=== PATIENT | male | born 1955 | race Hispanic/Latino ===

== ENCOUNTER → 2018-05-08 | Outpatient (CLI) | payer MEDICARE | END | disposition home or self-care (01) | LOC: SHCH 14:33 | PROVIDERS: ATTEND Internal Medicine Cardiovascular Disease | DX: R06.00 Dyspnea, unspecified (principal); G47.39 Other sleep apnea | CPT/HCPCS: 93306 ==

== ENCOUNTER → 2018-05-15 | Outpatient (CLI) | payer MEDICARE | END | disposition home or self-care (01) | LOC: SHCH 08:23 | PROVIDERS: ATTEND Internal Medicine Cardiovascular Disease | DX: I73.9 Peripheral vascular disease, unspecified (principal) | CPT/HCPCS: 93922 ==

== ENCOUNTER → 2018-06-10 | Outpatient (CLI) | payer MEDICARE ==
[~2018-06-10] MED LIST: IOHEXOL 350 MG/ML 100ML INFUS..BTL IV ONE; IOHEXOL-350 50ML VIAL IV ONE
== END | disposition home or self-care (01) ==
LOC: RAH 07:48
PROVIDERS: ATTEND Internal Medicine Cardiovascular Disease
DX: I70.213 Atherosclerosis of native arteries of extremities with intermittent claudication, bilateral legs (principal); I77.1 Stricture of artery
CPT/HCPCS: 73706 ×2; Q9967 ×2

== ENCOUNTER 2018-07-10 07:16 | Day surgery (SDC) | payer MEDICARE ==
[2018-07-08 09:18] VITALS: BP 170/78
[2018-07-08 09:23] LABS: EOSINOPHILS % (AUTO) 6.8 % (0.0-8.0); HEMATOCRIT 40.7 % (42-54); LYMPHOCYTES % (AUTO) 21.4 % (21.0-51.0); MEAN CORPUSCULAR HEMOGLOBIN 30.3 pg (27.0-33.0); MEAN CORPUSCULAR HGB CONC 33.7 g/dL (32.0-36.0); MEAN CORPUSCULAR VOLUME 89.8 fL (79-99); MONOCYTES % (AUTO) 7.8 % (3.0-13.0); PLATELET COUNT (AUTO) 167 K/uL (130-400); RED BLOOD CELL COUNT(AUTO) 4.53 MIL/uL (4.50-6.20); RED CELL DISTRIBUTION WIDTH 16.1 % (11.0-15.5); WHITE BLOOD COUNT (AUTO) 7.4 K/uL (4.8-10.8)
[2018-07-08 09:34] LABS: POTASSIUM 5.1 mmol/L (3.5-5.1)
[2018-07-08 09:37] LABS: CREATININE 9.8 mg/dL (0.5-1.5)
[2018-07-08 09:39] LABS: INR 1.15 (0.85-1.15); PARTIAL THROMBOPLASTIN TIME 29.5 SEC (26.3-35.5)
[2018-07-08 10:14] LABS: APPEARANCE,URINE Clear (CLEAR); BILIRUBIN,URINE Negative (NEGATIVE); COLOR,URINE Yellow (YELLOW); GLUCOSE, URINE (UA) 500 mg/dL (NEGATIVE); KETONES,URINE Negative (NEGATIVE); LEUKOCYTE ESTERASE ,URINE Small (NEGATIVE); NITRATE,URINE Negative (NEGATIVE); OCCULT BLOOD,URINE Negative (NEGATIVE); PH,URINE >=9.0 (5.0-8.0); PROTEIN,URINE 300 (NEGATIVE); UROBILINOGEN,URINE 0.2 mg/dL (0.2-1.0)
[2018-07-08 10:22] LABS: BACTERIA,URINE Rare /HPF (None Seen); RBC,URINE 0-1 /HPF (0-1); SQUAMOUS EPITHELIAL CELL,UR Rare /HPF (0-2)
--- NOTE | 2018-07-09 09:58 | NUR ---
ABNORMAL LABS REPORTED TO JOSE ROBERTO YUSUF OF PT'S BUN 42, CREAT 9.8, PT IS ON DIALYSIS, PT 12.0, UA- NITRATES NEGATIVE, ULEUKEST SMALL, UWBC 2-5. NO FURTHER ORDERS GIVEN.
[2018-07-10] VITALS (10 sets, daily range): BP systolic 137–168; BP diastolic 67–83
[~2018-07-10] VITALS: Ht 172.7 cm; Wt 97.1 kg
--- NOTE | 2018-07-10 04:15 | NUR ---
Pt called and notified of appointment with Dr. López for 07/17/18 at 12:50 PM. Pt verbalized understanding. Addendum: 07/10/18 at 1647 by JORGE MCNULTY RN RN Time should read 16:15.
[~2018-07-10 07:16] MED LIST changes: +AMLO10TA7 PO; +AURYXIA PO; +CARV12.511 PO; +FOLI0.8T22 PO; +GLIM4TAB3 PO; -IOHEXOL 350 MG/ML 100ML INFUS..BTL IV ONE; -IOHEXOL-350 50ML VIAL IV ONE
--- NOTE | 2018-07-10 08:30 | NUR ---
ASSESSMENT PT HERE FOR PROCEDURE. STATES HAS PAIN TO LOWER LEGS. NO FAMILY AT BEDSIDE BUT HAS FRIEND WHO WILL PICK HIM UP
[2018-07-10] MEDS ORDERED: NITROGLYCERIN 5 MG/ML 10 ML VIAL IV ONE (08:37)
[2018-07-10] MEDS ORDERED: HEPARIN SODIUM 1000UNIT/ML 10ML VIAL ONE (08:37)
[2018-07-10] MEDS ORDERED: LIDOCAINE HCL 2% 20ML ONE (08:37)
[2018-07-10] MEDS ORDERED: IODIXANOL 320 MG/ML 100 ML VIAL ONE (08:37)
--- NOTE | 2018-07-10 08:40 | NUR ---
PROCEDURE PT TAKEN TO PROCEDURE VIA BED BY WIRE BOUND BOX MACHINE HELPER STAFF Tracy RYAN RN
[2018-07-10] MEDS ORDERED: SODIUM CHLORIDE 0.9% 1000ML 1,000 ML IV ONE (09:00)
[2018-07-10] MEDS ORDERED: FAMOTIDINE/PF 20 MG/2 ML VIAL IV ONE (09:26)
[2018-07-10] MEDS ORDERED: MIDAZOLAM HCL 1 MG/ML 2ML VIAL ONE (09:31)
[2018-07-10] MEDS ORDERED: FENTANYL CITRATE PF 50 MCG/1 ML 2ML VIAL ONE (09:31)
[2018-07-10] MEDS ORDERED: LABETALOL HCL 5 MG/ML 20ML VIAL IV ONE (10:25)
[2018-07-10] MEDS ORDERED: TICAGRELOR 90 MG TABLET ONE (10:27)
[2018-07-10] MEDS ORDERED: ACETAMINOPHEN-CODEINE 300/30MG TAB PO PRN ×2 (10:45)
[2018-07-10] MEDS ORDERED: AURYXIA 210 MG PO SCH (14:00)
--- NOTE | 2018-07-10 15:10 | NUR ---
Pt discharged home, tolerating fluids, solid food well, ambulating well. Pt voided prior to going home. Denies any pain, nausea or dizziness. Site to right groin remains soft, non-tender. Pt instructed in routine and emergency care of groin site. Pt sent home with Brilinta 90 mg samples that were brought over by Nicole as well as prescription for Brilinta. No family available to be at bedside, however, pt reports understanding discharge instructions. Pt picked up at front entrance by family friend. Pt instructed to call day patient or Dr. Kelly with any further questions.
[2018-07-10] MEDS ORDERED: GLIMEPIRIDE 2 MG TABLET PO SCH (17:00)
[2018-07-10] MEDS ORDERED: TICAGRELOR 90 MG TABLET PO SCH (21:00)
[2018-07-10] MEDS ORDERED: CARVEDILOL 12.5 MG TABLET PO SCH (21:00)
[2018-07-11] MEDS ORDERED: AMLODIPINE BESYLATE 5 MG TAB PO SCH (09:00)
[2018-07-11] MEDS ORDERED: FOLIC ACID/VITAMIN B COMP W-C 1 MG CAPSULE PO SCH (09:00)
== END 2018-07-10 15:10 | disposition home or self-care (01) ==
LOC: DAH 07:16
PROVIDERS: ATTEND Internal Medicine Cardiovascular Disease
DX: I70.213 Atherosclerosis of native arteries of extremities with intermittent claudication, bilateral legs (principal); I70.0 Atherosclerosis of aorta; Z79.01 Long term (current) use of anticoagulants; E11.319 Type 2 diabetes mellitus with unspecified diabetic retinopathy without macular edema; E11.22 Type 2 diabetes mellitus with diabetic chronic kidney disease; E11.42 Type 2 diabetes mellitus with diabetic polyneuropathy; N18.5 Chronic kidney disease, stage 5; Z99.2 Dependence on renal dialysis; Z79.899 Other long term (current) drug therapy; Z98.890 Other specified postprocedural states; E78.5 Hyperlipidemia, unspecified; G89.29 Other chronic pain; M19.90 Unspecified osteoarthritis, unspecified site; Z68.33 Body mass index [BMI] 33.0-33.9, adult; Z82.49 Family history of ischemic heart disease and other diseases of the circulatory system
CPT/HCPCS: 36415; 37226; 71045; 75630; 80048; 81001; 82948 ×2; 85025; 85610; 85730; 93005; C1725; C1760; C1769; C1874; C1893; C1894; J1644 ×2; J2250; J3010; J3490 ×4; J7030; Q9967; 75716; 99156; 99157

== ENCOUNTER → 2020-01-12 | Outpatient (CLI) | payer MEDICARE ==
[~2020-01-12] MED LIST changes: +CINA30 PO; -GLIM4TAB3 PO; +GLIM4TAB36 PO; +TICA90TA PO
== END | disposition home or self-care (01) ==
LOC: SHCH 11:18
PROVIDERS: ATTEND Internal Medicine Cardiovascular Disease
DX: I70.25 Atherosclerosis of native arteries of other extremities with ulceration (principal)
CPT/HCPCS: 93925

== ENCOUNTER 2020-03-04 06:58 | Day surgery (SDC) | payer MEDICARE ==
[2020-03-02 09:46] VITALS: BP 173/74
[2020-03-02 11:15] LABS: APPEARANCE,URINE Clear (CLEAR); BILIRUBIN,URINE Negative (NEGATIVE); COLOR,URINE Yellow (YELLOW); GLUCOSE, URINE (UA) 500 mg/dL (NEGATIVE); KETONES,URINE Negative (NEGATIVE); LEUKOCYTE ESTERASE ,URINE Negative (NEGATIVE); NITRATE,URINE Negative (NEGATIVE); OCCULT BLOOD,URINE Trace (NEGATIVE); PROTEIN,URINE POS 2+ mg/dL (NEGATIVE); UROBILINOGEN,URINE 0.2 mg/dL (0.2-1.0)
[2020-03-02 11:18] LABS: EOSINOPHILS % (AUTO) 5.3 % (0.0-8.0); HEMATOCRIT 36.6 % (42-54); LYMPHOCYTES % (AUTO) 30.5 % (21.0-51.0); MEAN CORPUSCULAR HEMOGLOBIN 31.3 pg (27.0-33.0); MEAN CORPUSCULAR HGB CONC 33.9 g/dL (32.0-36.0); MEAN CORPUSCULAR VOLUME 92.4 fL (79-99); MONOCYTES % (AUTO) 8.8 % (3.0-13.0); NEUTROPHILS % (AUTO) 53.8 % (40.0-77.0); PLATELET COUNT (AUTO) 203 K/uL (130-400); RED BLOOD CELL COUNT(AUTO) 3.96 MIL/uL (4.50-6.20); RED CELL DISTRIBUTION WIDTH 14.3 % (11.0-15.5)
[2020-03-02 11:21] LABS: POTASSIUM 4.9 mmol/L (3.5-5.1)
[2020-03-02 11:25] LABS: CREATININE 12.3 mg/dL (0.5-1.5)
[2020-03-02 11:47] LABS: BACTERIA,URINE Rare /HPF (None Seen); RBC,URINE 0-1 /HPF (0-1); SQUAMOUS EPITHELIAL CELL,UR Few /HPF (0-2); WBC,URINE 0-1 /HPF (0-1)
[2020-03-02 12:47] LABS: INR 1.04 (0.85-1.15); PARTIAL THROMBOPLASTIN TIME 26.4 SEC (26.3-35.5); PROTHROMBIN TIME 11.2 SEC (9.6-11.6)
[~2020-03-04] VITALS: Ht 167.6 cm; Wt 92.5 kg
[~2020-03-04 06:58] MED LIST changes: +AMLO-258 PO; -AMLO10TA7 PO; -CINA30 PO; +CLOP75TA32 PO; +CYAN50008 PO; +FISH1CAP27 PO; -GLIM4TAB36 PO; +GLIP10TA9 PO; +ROPI0.5T7 PO; -TICA90TA PO; +VITA-164 PO
[2020-03-04] MEDS ORDERED: SODIUM CHLORIDE 0.9% 1000ML 1,000 ML IV SCH (08:00)
[2020-03-04 08:15] VITALS: BP 157/76
--- NOTE | 2020-03-04 08:15 | NUR ---
PRE-PROCEDURE RECEIVED TO DAY 16 FOR SCHEDULED BLE ANGIOGRAM WITH POSSIBLE SLIVER LAPPER/STENT. AWAKE IN NO ACUTE DISTRESS. DENIES PAIN AT PRESENT TIME. CONNECTED TO CONTINUOUS CARDIOPULMONARY MONITORING. SIDE RAILS UP X2, BED IN LOWEST POSITION, AND CALL LIGHT W/IN REACH.
[2020-03-04] MEDS ORDERED: MIDAZOLAM HCL 1 MG/ML 2ML VIAL ONE (11:45)
[2020-03-04] MEDS ORDERED: IODIXANOL 320 MG/ML 100 ML VIAL ONE (11:45)
[2020-03-04] MEDS ORDERED: SODIUM BICARB 50MEQ 50ML VIAL 0 ML ONE (11:45)
[2020-03-04] MEDS ORDERED: HEPARIN SODIUM 1000UNIT/ML 10ML VIAL ONE (11:46)
[2020-03-04] MEDS ORDERED: LIDOCAINE HCL 2% 20ML ONE (11:46)
[2020-03-04] MEDS ORDERED: NITROGLYCERIN 2 MG/VIAL VIAL IV ONE (11:46)
[2020-03-04] MEDS ORDERED: FENTANYL CITRATE PF 50 MCG/1 ML 2ML VIAL ONE (11:46)
--- NOTE | 2020-03-04 12:00 | NUR ---
PROCEDURE TRANSFERRED TO HEAD TRACK COACH BY VICK RYAN RN. AWAKE IN NO ACUTE DISTRESS.
--- NOTE | 2020-03-04 12:20 | NUR ---
PROCEDURE RECEIVED BACK TO ROOM 16, PROCEDURE CANCELLED D/T PT NOT BEING ABLE TO LAY FLAT. PROCEDURE WILL BE RESCHEDULED ON 03/16/20.
--- NOTE | 2020-03-04 12:25 | NUR ---
RESCHEDULE SPOKE WITH ALAYNA AT [facility]. NOTIFIED THAT PTS PROCEDURE IS TO BE RESCHEDULED ON 03/16/20.
--- NOTE | 2020-03-04 13:45 | NUR ---
DISCHARGE SPOKE WITH FRANKY AT DR. BRAY'S OFFICE. SHE WILL CALL PT ON SATURDAY IF HE NEEDS TO BE SEEN IN OFFICE PRIOR TO RESCHEDULE. ADMISSION ORDER FAXED TO [facility] [facility].
--- NOTE | 2020-03-04 13:49 | NUR ---
DISCHARGE DISCHARGE INSTRUCTIONS REVIEWED INCLUDING PLAN TO BE ADMITTED ON 03/16/20 FOR DIALYSIS AND BLE ANGIOGRAM. VERBALIZED UNDERSTANDING.
== END 2020-03-04 14:00 ==
LOC: DAH 06:58
PROVIDERS: ATTEND Internal Medicine Cardiovascular Disease
DX: I70.213 Atherosclerosis of native arteries of extremities with intermittent claudication, bilateral legs (principal); E11.22 Type 2 diabetes mellitus with diabetic chronic kidney disease; I13.2 Hypertensive heart and chronic kidney disease with heart failure and with stage 5 chronic kidney disease, or end stage renal disease; I50.33 Acute on chronic diastolic (congestive) heart failure; N18.6 End stage renal disease; E78.5 Hyperlipidemia, unspecified; E11.21 Type 2 diabetes mellitus with diabetic nephropathy; E11.319 Type 2 diabetes mellitus with unspecified diabetic retinopathy without macular edema; E11.40 Type 2 diabetes mellitus with diabetic neuropathy, unspecified; M19.90 Unspecified osteoarthritis, unspecified site; Z99.2 Dependence on renal dialysis; Z79.84 Long term (current) use of oral hypoglycemic drugs; Z79.01 Long term (current) use of anticoagulants; Z79.899 Other long term (current) drug therapy; Z98.890 Other specified postprocedural states; Z53.8 Procedure and treatment not carried out for other reasons
CPT/HCPCS: 36415; 71045; 80048; 81001; 82948; 85025; 85610; 85730; 93005; A4215; A4216; A4221; A4222; A4223 ×3; A4606; A4663; J7030; J1644; J2250; J3010; J3490; Q9967

== ENCOUNTER → 2020-06-28 | Outpatient (CLI) | payer MEDICARE ==
[~2020-06-28] VITALS: Ht 170.2 cm; Wt 91.6 kg
[~2020-06-28] MED LIST changes: +FOLI1TAB85 PO; +REGADENOSON 0.4 MG/5 ML PF SYG IVP SCH; +TICA90TA PO; +VITA100D6 PO
== END | disposition home or self-care (01) ==
LOC: SHCH 08:46
PROVIDERS: ATTEND Internal Medicine Cardiovascular Disease
DX: I50.32 Chronic diastolic (congestive) heart failure (principal)
CPT/HCPCS: 78452; 93017; 96374; A9500 ×2; J2785

== ENCOUNTER 2020-06-30 18:03 | Inpatient (IN) | payer MEDICARE ==
[~2020-06-30] VITALS: Ht 170.2 cm; Wt 88.1 kg
[~2020-06-30 18:03] MED LIST changes: -CYAN50008 PO; +CYAN50009 PO; -FOLI1TAB85 PO; -REGADENOSON 0.4 MG/5 ML PF SYG IVP SCH; -TICA90TA PO; -VITA100D6 PO
[2020-06-30 18:28] LABS: BASOPHILS % (AUTO) 0.8 % (0.0-5.0); EOSINOPHILS % (AUTO) 4.4 % (0.0-8.0); HEMATOCRIT 28.3 % (42-54); LYMPHOCYTES % (AUTO) 23.9 % (21.0-51.0); MEAN CORPUSCULAR HEMOGLOBIN 30.6 pg (27.0-33.0); MEAN CORPUSCULAR HGB CONC 34.3 g/dL (32.0-36.0); MEAN CORPUSCULAR VOLUME 89.3 fL (79-99); MONOCYTES % (AUTO) 8.1 % (3.0-13.0); NEUTROPHILS % (AUTO) 62.4 % (40.0-77.0); PLATELET COUNT (AUTO) 211 K/uL (130-400); RED BLOOD CELL COUNT(AUTO) 3.17 MIL/uL (4.50-6.20); RED CELL DISTRIBUTION WIDTH 14.3 % (11.0-15.5); WHITE BLOOD COUNT (AUTO) 8.4 K/uL (4.8-10.8)
[2020-06-30 18:41] LABS: INR 1.23 (0.85-1.15); PROTHROMBIN TIME 13.2 SEC (9.6-11.6)
[2020-06-30 18:43] LABS: PARTIAL THROMBOPLASTIN TIME 25.6 SEC (26.3-35.5)
[2020-06-30 18:46] LABS: ALBUMIN 3.4 g/dL (3.5-5.0); BILIRUBIN,TOTAL 0.7 mg/dL (0.2-1.0); POTASSIUM 4.1 mmol/L (3.5-5.1); TOTAL PROTEIN, SERUM 8.5 g/dL (6.0-8.3)
[2020-06-30 18:47] LABS: CREATININE 8.2 mg/dL (0.5-1.5)
[2020-06-30 18:57] LABS: CREATINE KINASE, TOTAL 41 U/L (21-232); MYOGLOBIN 301 ng/mL (10-92); TROPONIN I < 0.04 ng/mL (0.00-0.06)
[2020-07-01 04:30] VITALS: BP 176/62
[2020-07-01] MEDS ORDERED: AMLO-258 PO (06:23)
[2020-07-01] MEDS ORDERED: FOLI1TAB85 PO (06:23)
[2020-07-01] MEDS ORDERED: CARV12.511 PO (06:23)
[2020-07-01] MEDS ORDERED: ROPI0.5T7 PO (06:23)
[2020-07-01] MEDS ORDERED: VITA100D6 PO (06:23)
[2020-07-01] MEDS ORDERED: TICA90TA PO (06:23)
[2020-07-01] MEDS ORDERED: GLIP10TA9 PO (06:23)
[2020-07-01 07:14] VITALS: BP 174/74
[2020-07-01 11:18] VITALS: BP 175/81
[2020-07-01 15:55] VITALS: BP 167/72
[2020-07-01] MEDS: GLIPIZIDE 5 MG TABLET PO SCH (16:14)
[2020-07-01] MEDS ORDERED: BIVALIRUDIN 250 MG/VIAL IV ONE (17:13)
[2020-07-01] MEDS ORDERED: NITROGLYCERIN 2 MG VIAL IV ONE (17:13)
[2020-07-01] MEDS ORDERED: IOHEXOL 350 MG/ML 100ML INFUS..BTL IV ONE (17:13)
[2020-07-01] MEDS ORDERED: SODIUM BICARB 50MEQ 50ML VIAL 50 ML ONE (17:13)
[2020-07-01] MEDS ORDERED: LIDOCAINE HCL 400MG/20ML VIAL ONE ×2 (17:14→18:07)
[2020-07-01] MEDS ORDERED: FENTANYL CITRATE PF 50 MCG/1 ML 2ML VIAL ONE ×2 (17:14→19:03)
[2020-07-01] MEDS ORDERED: MIDAZOLAM HCL 1 MG/ML 2ML VIAL ONE (17:14)
[2020-07-01] MEDS ORDERED: ENALAPRILAT DIHYDRATE 1.25 MG/ML 2ML VIAL IVP ONE ×3 (18:28→18:42)
[2020-07-01] MEDS ORDERED: LABETALOL 20MG VIAL IV ONE (18:42)
[2020-07-01] MEDS ORDERED: NICARDIPINE 25MG INJ IV ONE (19:01)
[2020-07-01] MEDS ORDERED: PRASUGREL HCL 10 MG TABLET ONE (19:28)
[2020-07-01] MEDS ORDERED: HYDRALAZINE 20MG/ML VIAL ONE (19:31)
[2020-07-01] MEDS ORDERED: HYDRALAZINE 20MG/ML VIAL IV PRN (20:30)
[2020-07-01 20:45] VITALS: BP 166/74
[2020-07-01] MEDS ORDERED: TICAGRELOR 90 MG TABLET PO SCH (21:00)
[2020-07-01] MEDS: FISH OIL 1000 MG/CAP PO SCH (21:05)
[2020-07-01] MEDS: CARVEDILOL 12.5 MG TABLET PO SCH (21:07)
[2020-07-01 23:30] VITALS: BP 169/78
[2020-07-02] VITALS (10 sets, daily range): BP systolic 146–181; BP diastolic 74–86
[2020-07-02] MEDS: GLIPIZIDE 5 MG TABLET PO SCH ×2 (05:37→08:30)
[2020-07-02 07:41] LABS: HEMATOCRIT 27.5 % (42-54); MEAN CORPUSCULAR HGB CONC 33.1 g/dL (32.0-36.0); MEAN CORPUSCULAR VOLUME 90.8 fL (79-99); PLATELET COUNT (AUTO) 206 K/uL (130-400); RED BLOOD CELL COUNT(AUTO) 3.03 MIL/uL (4.50-6.20); RED CELL DISTRIBUTION WIDTH 14.5 % (11.0-15.5); WHITE BLOOD COUNT (AUTO) 8.8 K/uL (4.8-10.8)
[2020-07-02 08:00] LABS: CREATININE 7.8 mg/dL (0.5-1.5); PHOSPHORUS 4.3 mg/dL (2.5-4.9); POTASSIUM 4.3 mmol/L (3.5-5.1)
[2020-07-02] MEDS ORDERED: ROPINIROLE HCL 0.25 MG TABLET PO SCH (08:00)
[2020-07-02] MEDS: CARVEDILOL 12.5 MG TABLET PO SCH (08:30)
[2020-07-02] MEDS: FISH OIL 1000 MG/CAP PO SCH (08:31)
[2020-07-02] MEDS ORDERED: VITAMIN E 400 UNIT CAPSULE PO SCH (09:00)
[2020-07-02] MEDS ORDERED: AMLODIPINE 5 MG TAB PO SCH (09:00)
[2020-07-02] MEDS ORDERED: PRASUGREL HCL 10 MG TABLET PO SCH (09:00)
[2020-07-02] MEDS ORDERED: Vitamin B Complex/Vit C/Folic Acid PO SCH (09:00)
[2020-07-02 09:41] LABS: BASOPHILS % (MANUAL) 1 % (0-2); EOSINOPHILS % (MANUAL) 2 % (1-6); LYMPHOCYTES % (MANUAL) 10 % (22-44); MONOCYTES % (MANUAL) 8 % (2-9); SEGMENTED NEUTROPHILS % 79 % (40-70)
[2020-07-02 09:43] LABS: PLATELET MORPHOLOGY COMMENT ADEQUATE
[2020-07-02 09:45] LABS: MAN.DIFF COMMENT-IMPRESSION MANUAL DIFFERENTIAL
[2020-07-02 10:12] LABS: HEPATITIS A ANTIBODY IGM Negative (Negative); HEPATITIS B CORE IGM Negative (Negative); HEPATITIS Bs ANTIGEN SCREEN P Negative (Negative)
== END 2020-07-02 13:10 | disposition left against medical advice (07) | DRG 246 ==
LOC: EDH 18:03 → EDHIP 18:04 → 4CH 07-01 04:13
PROVIDERS: ADMIT Internal Medicine Nephrology; ATTEND Internal Medicine Nephrology
PROC: 5A1D70Z Performance of Urinary Filtration, Intermittent, Less than 6 Hours Per Day (ICD-10-PCS; 2020-06-30)
PROC: 027034Z Dilation of Coronary Artery, One Artery with Drug-eluting Intraluminal Device, Percutaneous Approach (ICD-10-PCS; principal; 2020-07-01)
PROC: 5A1D70Z Performance of Urinary Filtration, Intermittent, Less than 6 Hours Per Day (ICD-10-PCS; 2020-07-01)
PROC: 4A023N8 Measurement of Cardiac Sampling and Pressure, Bilateral, Percutaneous Approach (ICD-10-PCS; 2020-07-01)
PROC: B211YZZ Fluoroscopy of Multiple Coronary Arteries using Other Contrast (ICD-10-PCS; 2020-07-01)
PROC: B215YZZ Fluoroscopy of Left Heart using Other Contrast (ICD-10-PCS; 2020-07-01)
DX: I25.10 Atherosclerotic heart disease of native coronary artery without angina pectoris (principal); N18.6 End stage renal disease; I13.2 Hypertensive heart and chronic kidney disease with heart failure and with stage 5 chronic kidney disease, or end stage renal disease; I16.9 Hypertensive crisis, unspecified; I50.42 Chronic combined systolic (congestive) and diastolic (congestive) heart failure; E78.5 Hyperlipidemia, unspecified; E11.22 Type 2 diabetes mellitus with diabetic chronic kidney disease; Z99.2 Dependence on renal dialysis; E83.39 Other disorders of phosphorus metabolism; E11.51 Type 2 diabetes mellitus with diabetic peripheral angiopathy without gangrene; D64.9 Anemia, unspecified; I34.0 Nonrheumatic mitral (valve) insufficiency; Z20.822 Contact with and (suspected) exposure to COVID-19; Z88.5 Allergy status to narcotic agent
CPT/HCPCS: 36415; 71045; 78452; 80048; 80053; 80061; 80074; 82550; 82948; 83874; 84100; 84484; 85025; 85610; 85730; 87426; 90935; 93005; 93017; 93460; 96374; 99156; 99157; A9500; C1769; C1887; C1894; C9600; G0378; J0360; J0583; J1644; J2250; J2785; J3010; J3490; Q9967; U0003

== ENCOUNTER 2021-02-07 05:56 | Inpatient (IN) | payer MEDICARE ==
[2021-02-02 16:09] LABS: BASOPHILS % (AUTO) 0.8 % (0.0-5.0); EOSINOPHILS % (AUTO) 4.4 % (0.0-8.0); HEMATOCRIT 36.3 % (42-54); LYMPHOCYTES % (AUTO) 20.5 % (21.0-51.0); MEAN CORPUSCULAR HEMOGLOBIN 31.7 pg (27.0-33.0); MEAN CORPUSCULAR HGB CONC 34.7 g/dL (32.0-36.0); MEAN CORPUSCULAR VOLUME 91.4 fL (79-99); MONOCYTES % (AUTO) 7.8 % (3.0-13.0); NEUTROPHILS % (AUTO) 65.9 % (40.0-77.0); PLATELET COUNT (AUTO) 191 K/uL (130-400); RED BLOOD CELL COUNT(AUTO) 3.97 MIL/uL (4.50-6.20); RED CELL DISTRIBUTION WIDTH 13.5 % (11.0-15.5); WHITE BLOOD COUNT (AUTO) 10.5 K/uL (4.8-10.8)
[2021-02-02 16:20] LABS: POTASSIUM 5.3 mmol/L (3.5-5.1)
[2021-02-02 16:21] LABS: INR 1.19 (0.85-1.15); PROTHROMBIN TIME 12.8 SEC (9.6-11.6)
[2021-02-02 16:22] LABS: PARTIAL THROMBOPLASTIN TIME 28.2 SEC (26.3-35.5)
[2021-02-02 16:24] LABS: CREATININE 9.4 mg/dL (0.5-1.5)
[~2021-02-07] VITALS: Ht 170.2 cm; Wt 90.4 kg
[2021-02-07] VITALS (18 sets, daily range): BP systolic 107–177; BP diastolic 51–85
[~2021-02-07 05:56] MED LIST changes: -FOLI0.8T22 PO; +FOLI1TAB85 PO; +TICA90TA PO; +VITA100D6 PO
[2021-02-07] MEDS ORDERED: NITROGLYCERIN 2 MG VIAL IV ONE (08:22)
[2021-02-07] MEDS ORDERED: HEPARIN 10,000 UNIT/10ML (1,000 UNIT/ML) VIAL ONE (08:22)
[2021-02-07] MEDS ORDERED: LIDOCAINE HCL 400MG/20ML VIAL ONE (08:23)
[2021-02-07] MEDS ORDERED: IODIXANOL 320 MG/ML 100 ML VIAL ONE (08:23)
[2021-02-07] MEDS ORDERED: FENTANYL CITRATE PF 50 MCG/1 ML 2ML VIAL ONE ×2 (08:23→10:18)
[2021-02-07] MEDS ORDERED: MIDAZOLAM HCL 1 MG/ML 2ML VIAL ONE (08:23)
[2021-02-07] MEDS ORDERED: DEXTROSE 50%-WATER 50 ML DISP.SYRIN IV ONE (08:51)
[2021-02-07] MEDS ORDERED: 0.9%NACL 1000ML 1,000 ML IV ONE (09:06)
[2021-02-07] MEDS ORDERED: ACETAMINOPHEN 325 MG TAB PO PRN (13:00)
[2021-02-07] MEDS: 0.9%NACL 50ML 50 ML IV SCH (13:00)
[2021-02-07] MEDS ORDERED: ZOSYN 3.375GM+NS 50ML 3.38 GM in 0.9%NACL 50ML 50 ML IV SCH (13:00)
[2021-02-07] MEDS ORDERED: VANCOMYCIN PROTOCOL PER PHARMACY IV SCH (13:00)
[2021-02-07] MEDS ORDERED: ONDANSETRON 4MG INJ IVP PRN (13:00)
[2021-02-07] MEDS: PHARMACY COMMUNICATION MISC SCH ×2 (14:00→22:00)
[2021-02-07] MEDS ORDERED: VANCOMYCIN 1G 1.5 GM in 0.9% NACL 250ML 250 ML IV ONE ×2 (14:00→17:00)
[2021-02-07] MEDS ORDERED: CHOL100046 PO (14:48)
[2021-02-07] MEDS: ZOSYN 3.375GM +NS 50ML IV SCH (15:21)
[2021-02-07] MEDS: INSULIN HUMULIN R 100 UNIT/ML 3ML SQ SCH ×2 (16:30→21:00)
[2021-02-07] MEDS ORDERED: INSULIN HUMULIN R 100 UNIT/ML 3ML SQ SCH (16:30)
[2021-02-07] MEDS ORDERED: COMPOUND IV REFRIGERATED 1 EACH IVSOLN MISC PRN (17:00)
[2021-02-07] MEDS: CARVEDILOL 12.5 MG TABLET PO SCH (21:23)
[2021-02-07] MEDS: GLIPIZIDE 5 MG TABLET PO SCH (21:23)
[2021-02-07] MEDS: TICAGRELOR 90 MG TABLET PO SCH (21:24)
[2021-02-08] VITALS (20 sets, daily range): BP systolic 147–197; BP diastolic 63–90
[2021-02-08] MEDS: ZOSYN 3.375GM +NS 50ML IV SCH ×2 (01:06→13:26)
[2021-02-08] MEDS: 0.9%NACL 50ML 50 ML IV SCH ×2 (01:07→13:26)
[2021-02-08] MEDS: INSULIN HUMULIN R 100 UNIT/ML 3ML SQ SCH ×3 (06:08→16:30)
[2021-02-08] MEDS ORDERED: ROPINIROLE HCL 0.25 MG TABLET PO SCH (09:00)
[2021-02-08] MEDS ORDERED: AMLODIPINE 5 MG TAB PO SCH (09:00)
[2021-02-08] MEDS ORDERED: Vitamin B Complex/Vit C/Folic Acid PO SCH (09:00)
[2021-02-08] MEDS ORDERED: FISH OIL 1000 MG/CAP PO SCH (09:00)
[2021-02-08] MEDS: TICAGRELOR 90 MG TABLET PO SCH (09:58)
[2021-02-08] MEDS: GLIPIZIDE 5 MG TABLET PO SCH (09:59)
[2021-02-08] MEDS: CARVEDILOL 12.5 MG TABLET PO SCH (09:59)
[2021-02-08] MEDS: PHARMACY COMMUNICATION MISC SCH ×2 (10:02→14:00)
[2021-02-10] MEDS ORDERED: VANCOMYCIN 500MG+NS 100ML IVPB IV SCH (09:00)
[2021-02-10] MEDS ORDERED: 0.9%NACL 100ML 100 ML IV SCH (09:00)
== END 2021-02-08 19:10 | disposition left against medical advice (07) | DRG 270 ==
LOC: DAH 05:56 → DAHIP 05:57 → 3BH 14:36
PROVIDERS: ADMIT Internal Medicine Nephrology; ATTEND Internal Medicine Nephrology
PROC: 04CK3ZZ Extirpation of Matter from Right Femoral Artery, Percutaneous Approach (ICD-10-PCS; principal; 2021-02-07)
PROC: B4101ZZ Fluoroscopy of Abdominal Aorta using Low Osmolar Contrast (ICD-10-PCS; 2021-02-07)
PROC: B41F1ZZ Fluoroscopy of Right Lower Extremity Arteries using Low Osmolar Contrast (ICD-10-PCS; 2021-02-07)
PROC: 5A1D70Z Performance of Urinary Filtration, Intermittent, Less than 6 Hours Per Day (ICD-10-PCS; 2021-02-08)
DX: E11.52 Type 2 diabetes mellitus with diabetic peripheral angiopathy with gangrene (principal); N18.6 End stage renal disease; L03.115 Cellulitis of right lower limb; I12.0 Hypertensive chronic kidney disease with stage 5 chronic kidney disease or end stage renal disease; L03.116 Cellulitis of left lower limb; D64.9 Anemia, unspecified; E78.5 Hyperlipidemia, unspecified; E11.22 Type 2 diabetes mellitus with diabetic chronic kidney disease; Z71.89 Other specified counseling; Z99.2 Dependence on renal dialysis; Z88.6 Allergy status to analgesic agent; Z95.5 Presence of coronary angioplasty implant and graft; Z91.19 Patient's noncompliance with other medical treatment and regimen
CPT/HCPCS: 36415; 71045; 75710; 80048; 82948; 84132; 85025; 85610; 85730; 87040; 90935; 93005; 99156; 99157; A4606; C1760; C1769; C1893; C1894; C9764; G0378; J1644; J2250; J2543; J3010; J3370; J3490; J7030; J7050; J7070; Q9967

== ENCOUNTER 2021-03-28 17:30 | Inpatient (IN) | payer MEDICARE ==
[~2021-03-28] VITALS: Ht 170.2 cm; Wt 81.2 kg
[~2021-03-28 17:30] MED LIST changes: +CHOL100046 PO
[2021-03-28] MEDS ORDERED: MORPHINE 4 MG SYG IVP ONE (19:00)
[2021-03-28] MEDS ORDERED: ZOSYN 3.375GM +NS 50ML IV ONE (19:00)
[2021-03-28] MEDS ORDERED: ONDANSETRON 4MG INJ IVP ONE (19:00)
[2021-03-28 19:18] LABS: BASOPHILS % (AUTO) 0.7 % (0.0-5.0); EOSINOPHILS % (AUTO) 3.5 % (0.0-8.0); HEMATOCRIT 38.4 % (42-54); LYMPHOCYTES % (AUTO) 17.5 % (21.0-51.0); MEAN CORPUSCULAR HEMOGLOBIN 30.7 pg (27.0-33.0); MEAN CORPUSCULAR HGB CONC 34.4 g/dL (32.0-36.0); MEAN CORPUSCULAR VOLUME 89.3 fL (79-99); MONOCYTES % (AUTO) 8.8 % (3.0-13.0); NEUTROPHILS % (AUTO) 68.8 % (40.0-77.0); PLATELET COUNT (AUTO) 269 K/uL (130-400)
[2021-03-28 19:35] LABS: INR 1.26 (0.85-1.15); PROTHROMBIN TIME 13.4 SEC (9.6-11.6)
[2021-03-28 19:36] LABS: PARTIAL THROMBOPLASTIN TIME 29.1 SEC (26.3-35.5)
[2021-03-28 20:21] LABS: ALBUMIN 3.4 g/dL (3.5-5.0); BILIRUBIN,TOTAL 1.2 mg/dL (0.2-1.0); CRP QUANTITATIVE 18.9 mg/L (0.00-9.0); POTASSIUM 4.8 mmol/L (3.5-5.1); TOTAL PROTEIN, SERUM 8.9 g/dL (6.0-8.3)
[2021-03-28 20:22] LABS: CREATININE 10.7 mg/dL (0.5-1.5)
[2021-03-28 20:22] LABS: ERYTHROCYTE SEDIMENTATION RATE 111 MM/HR (0-20)
[2021-03-28] MEDS ORDERED: VANCOMYCIN 1G VIAL IVPB ONE (21:00)
[2021-03-28] MEDS ORDERED: TRAM50TA4 PO (21:10)
[2021-03-28] MEDS ORDERED: CARV12.511 PO (21:10)
[2021-03-28] MEDS ORDERED: SULF1TAB89 PO (21:10)
[2021-03-28] MEDS ORDERED: AURYXIA 210 MG PO (21:10)
[2021-03-28] MEDS ORDERED: AMOX1TAB16 PO (21:10)
[2021-03-28] MEDS ORDERED: AURYXIA (21:10)
[2021-03-28] MEDS ORDERED: GLIP10TA9 PO (21:10)
[2021-03-28] MEDS ORDERED: AMLO-258 PO (21:10)
[2021-03-28] MEDS ORDERED: UMEC1DIS IH (21:10)
[2021-03-28] MEDS ORDERED: FLUT16H NS (21:10)
[2021-03-28] MEDS ORDERED: FOLI0.8T22 PO (21:10)
[2021-03-28] MEDS ORDERED: TICA90TA PO (21:10)
[2021-03-28] MEDS ORDERED: NAPR-1141 PO (21:10)
[2021-03-28] MEDS ORDERED: PREG75CA75 PO (21:10)
[2021-03-28] MEDS ORDERED: CILO50TA PO (21:10)
[2021-03-28] MEDS ORDERED: VANCOMYCIN 1G/250ML KIT 250 ML IV ONE (21:14)
[2021-03-28] MEDS ORDERED: DEXTROSE 50%-WATER 50 ML DISP.SYRIN IV ONE ×2 (21:14→21:30)
[2021-03-28] MEDS ORDERED: ONDANSETRON 4MG INJ IV PRN (21:30)
[2021-03-28] MEDS: ZOSYN 3.375GM+NS 50ML 50 ML IV SCH (21:30)
[2021-03-28] MEDS ORDERED: LACTATED RINGERS 1000ML 1,000 ML IV SCH (21:30)
[2021-03-28] MEDS ORDERED: VANCOMYCIN PROTOCOL PER PHARMACY IV PRN (21:30)
[2021-03-28] MEDS: MORPHINE 4 MG SYG IV PRN (23:21)
[2021-03-29] VITALS (22 sets, daily range): BP systolic 170–204; BP diastolic 72–96
[2021-03-29 01:30] LABS: APPEARANCE,URINE CLEAR (CLEAR); BILIRUBIN,URINE NEGATIVE (NEGATIVE); COLOR,URINE YELLOW (YELLOW); GLUCOSE, URINE (UA) 100 mg/dL (NEGATIVE); KETONES,URINE NEGATIVE (NEGATIVE); LEUKOCYTE ESTERASE ,URINE NEGATIVE (NEGATIVE); NITRATE,URINE NEGATIVE (NEGATIVE); OCCULT BLOOD,URINE TRACE-INTACT (NEGATIVE); PH,URINE 8.5 (5.0-8.0); PROTEIN,URINE 100 mg/dL (NEGATIVE); UROBILINOGEN,URINE 0.2 mg/dL (0.2-1.0)
[2021-03-29 01:40] LABS: RBC,URINE 0-1 /HPF (0-1)
[2021-03-29 01:41] LABS: BACTERIA,URINE Rare /HPF (None Seen); SQUAMOUS EPITHELIAL CELL,UR Moderate /HPF (0-2)
[2021-03-29 01:43] LABS: TRANSITIONAL EPI CELLS,URINE Few /HPF (None Seen)
[2021-03-29] MEDS: IPRATROPIUM 0.5 MG/2.5 ML INH IH SCH ×4 (02:24→18:24)
[2021-03-29] MEDS: HYDRALAZINE 20MG/ML VIAL IV PRN ×3 (02:49→16:15)
[2021-03-29] MEDS: MORPHINE 4 MG SYG IV PRN ×2 (03:39→14:50)
[2021-03-29 04:39] LABS: BASOPHILS % (AUTO) 0.7 % (0.0-5.0); EOSINOPHILS % (AUTO) 4.1 % (0.0-8.0); HEMATOCRIT 32.8 % (42-54); LYMPHOCYTES % (AUTO) 24.3 % (21.0-51.0); MEAN CORPUSCULAR HEMOGLOBIN 30.8 pg (27.0-33.0); MEAN CORPUSCULAR HGB CONC 33.8 g/dL (32.0-36.0); MEAN CORPUSCULAR VOLUME 91.1 fL (79-99); MONOCYTES % (AUTO) 11.7 % (3.0-13.0); NEUTROPHILS % (AUTO) 58.4 % (40.0-77.0); PLATELET COUNT (AUTO) 207 K/uL (130-400); RED CELL DISTRIBUTION WIDTH 13.8 % (11.0-15.5); WHITE BLOOD COUNT (AUTO) 9.1 K/uL (4.8-10.8)
[2021-03-29 04:48] LABS: HEMOGLOBIN A1C 5.2 % (4.0-6.0)
[2021-03-29 04:54] LABS: MAGNESIUM 2.4 mg/dL (1.80-2.40); PHOSPHORUS 9.9 mg/dL (2.5-4.9); POTASSIUM 5.3 mmol/L (3.5-5.1)
[2021-03-29 05:00] LABS: CREATININE 11.9 mg/dL (0.5-1.5)
[2021-03-29] MEDS ORDERED: DEXTROSE 50%-WATER 50 ML DISP.SYRIN IV ONE (05:49)
[2021-03-29] MEDS ORDERED: DEXTROSE 5%-WATER 1,000 ML IV SCH (06:00)
[2021-03-29] MEDS ORDERED: DEXTROSE 5%-WATER 1,000 ML IV ONE (06:01)
[2021-03-29] MEDS ORDERED: COMPOUND IV REFRIGERATED 1 EACH IVSOLN MISC PRN (07:00)
[2021-03-29] MEDS: ZOSYN 3.375GM+NS 50ML 50 ML IV SCH ×2 (09:35→22:44)
[2021-03-29] MEDS: FAMOTIDINE 20MG VIAL IV SCH (09:35)
[2021-03-29] MEDS: CARVEDILOL 12.5 MG TABLET PO SCH ×2 (09:36→22:44)
[2021-03-30] VITALS (7 sets, daily range): BP systolic 127–195; BP diastolic 65–82
[2021-03-30] MEDS: IPRATROPIUM 0.5 MG/2.5 ML INH IH SCH ×4 (00:20→19:12)
[2021-03-30 05:45] LABS: HEMATOCRIT 33.9 % (42-54); MEAN CORPUSCULAR HEMOGLOBIN 30.9 pg (27.0-33.0); MEAN CORPUSCULAR HGB CONC 34.2 g/dL (32.0-36.0); MEAN CORPUSCULAR VOLUME 90.4 fL (79-99); PLATELET COUNT (AUTO) 209 K/uL (130-400); RED BLOOD CELL COUNT(AUTO) 3.75 MIL/uL (4.50-6.20); RED CELL DISTRIBUTION WIDTH 13.9 % (11.0-15.5); WHITE BLOOD COUNT (AUTO) 8.9 K/uL (4.8-10.8)
[2021-03-30] MEDS: HYDRALAZINE 20MG/ML VIAL IV PRN (06:11)
[2021-03-30 06:24] LABS: ALBUMIN 3.1 g/dL (3.5-5.0); BILIRUBIN,TOTAL 1.1 mg/dL (0.2-1.0); MAGNESIUM 2.3 mg/dL (1.80-2.40); POTASSIUM 5.7 mmol/L (3.5-5.1); THYROID STIMULATING HORMONE 4.23 uIU/mL (0.36-3.74); TOTAL PROTEIN, SERUM 8.4 g/dL (6.0-8.3)
[2021-03-30 06:37] LABS: BASOPHILS % (MANUAL) 1 % (0-2); EOSINOPHILS % (MANUAL) 4 % (1-6); LYMPHOCYTES % (MANUAL) 24 % (22-44); MONOCYTES % (MANUAL) 7 % (2-9); SEGMENTED NEUTROPHILS % 64 % (40-70)
[2021-03-30 06:38] LABS: MAN.DIFF COMMENT-IMPRESSION MANUAL DIFFERENTIAL; PLATELET MORPHOLOGY COMMENT ADEQUATE
[2021-03-30] MEDS: AURYXIA 210 MG PO SCH ×3 (08:00→17:00)
[2021-03-30 08:14] LABS: HEPATITIS Bs ANTIGEN SCREEN P Negative (Negative)
[2021-03-30] MEDS: ZOSYN 3.375GM+NS 50ML 50 ML IV SCH ×2 (09:44→20:58)
[2021-03-30] MEDS: NIFEDIPINE 10 MG CAP PO SCH ×3 (09:45→20:57)
[2021-03-30] MEDS: Vitamin B Complex/Vit C/Folic Acid PO SCH (09:45)
[2021-03-30] MEDS: PREGABALIN 75 MG CAPSULE PO SCH ×2 (09:45→20:57)
[2021-03-30] MEDS: TICAGRELOR 90 MG TABLET PO SCH ×2 (09:45→20:58)
[2021-03-30] MEDS: CARVEDILOL 12.5 MG TABLET PO SCH ×2 (09:46→20:58)
[2021-03-30] MEDS: FAMOTIDINE 20MG VIAL IV SCH (09:48)
[2021-03-30] MEDS: MORPHINE 4 MG SYG IV PRN ×2 (10:59→20:59)
[2021-03-31] VITALS (20 sets, daily range): BP systolic 129–170; BP diastolic 63–99
[2021-03-31] MEDS: IPRATROPIUM 0.5 MG/2.5 ML INH IH SCH ×2 (00:24→06:24)
[2021-03-31 04:53] LABS: HEMATOCRIT 33.8 % (42-54); MEAN CORPUSCULAR HEMOGLOBIN 30.7 pg (27.0-33.0); MEAN CORPUSCULAR HGB CONC 33.7 g/dL (32.0-36.0); MEAN CORPUSCULAR VOLUME 91.1 fL (79-99); RED BLOOD CELL COUNT(AUTO) 3.71 MIL/uL (4.50-6.20); RED CELL DISTRIBUTION WIDTH 13.8 % (11.0-15.5); WHITE BLOOD COUNT (AUTO) 10.1 K/uL (4.8-10.8)
[2021-03-31 05:06] LABS: POTASSIUM 5.5 mmol/L (3.5-5.1)
[2021-03-31 05:39] LABS: CREATININE 12.7 mg/dL (0.5-1.5)
[2021-03-31] MEDS: AURYXIA 210 MG PO SCH ×2 (08:00→12:00)
[2021-03-31] MEDS: Vitamin B Complex/Vit C/Folic Acid PO SCH (09:00)
[2021-03-31] MEDS: CARVEDILOL 12.5 MG TABLET PO SCH ×2 (09:00→20:19)
[2021-03-31] MEDS: FAMOTIDINE 20MG VIAL IV SCH (09:00)
[2021-03-31] MEDS: NIFEDIPINE 10 MG CAP PO SCH ×3 (09:00→20:19)
[2021-03-31] MEDS: PREGABALIN 75 MG CAPSULE PO SCH ×2 (09:00→20:19)
[2021-03-31] MEDS: ZOSYN 3.375GM+NS 50ML 50 ML IV SCH ×2 (09:30→14:00)
[2021-03-31] MEDS: 0.9%NACL 1000ML 1,000 ML IV PRN (10:59)
[2021-03-31] MEDS ORDERED: IPRATROPIUM 0.5 MG/2.5 ML INH IH PRN (11:00)
[2021-03-31] MEDS: MORPHINE 4 MG SYG IV PRN (20:19)
[2021-04-01] VITALS: BP 146/57
[2021-04-01 04:00] VITALS: BP 157/67
[2021-04-01 05:23] LABS: HEMATOCRIT 34.2 % (42-54); MEAN CORPUSCULAR HEMOGLOBIN 30.8 pg (27.0-33.0); MEAN CORPUSCULAR HGB CONC 34.2 g/dL (32.0-36.0); PLATELET COUNT (AUTO) 238 K/uL (130-400); RED CELL DISTRIBUTION WIDTH 13.7 % (11.0-15.5); WHITE BLOOD COUNT (AUTO) 10.2 K/uL (4.8-10.8)
[2021-04-01 05:48] LABS: POTASSIUM 5.1 mmol/L (3.5-5.1)
[2021-04-01 05:54] LABS: CREATININE 10.5 mg/dL (0.5-1.5)
[2021-04-01 06:22] LABS: EOSINOPHILS % (MANUAL) 8 % (1-6); LYMPHOCYTES % (MANUAL) 28 % (22-44); MONOCYTES % (MANUAL) 5 % (2-9); REACTIVE LYMPHOCYTES 2 % (0-0); SEGMENTED NEUTROPHILS % 57 % (40-70)
[2021-04-01 06:23] LABS: MAN.DIFF COMMENT-IMPRESSION MANUAL DIFFERENTIAL
[2021-04-01 06:25] LABS: PLATELET MORPHOLOGY COMMENT ADEQUATE
[2021-04-01 08:00] VITALS: BP 166/70
[2021-04-01] MEDS: AURYXIA 210 MG PO SCH ×3 (08:00→12:10)
[2021-04-01] MEDS: ZOSYN 3.375GM+NS 50ML 50 ML IV SCH ×2 (10:00→20:14)
[2021-04-01] MEDS: FAMOTIDINE 20MG VIAL IV SCH (10:00)
[2021-04-01] MEDS: NIFEDIPINE 10 MG CAP PO SCH ×3 (10:00→20:14)
[2021-04-01] MEDS: PREGABALIN 75 MG CAPSULE PO SCH ×2 (10:01→20:14)
[2021-04-01] MEDS: CARVEDILOL 12.5 MG TABLET PO SCH ×2 (10:01→20:14)
[2021-04-01] MEDS: Vitamin B Complex/Vit C/Folic Acid PO SCH (10:01)
[2021-04-01 12:00] VITALS: BP 117/58
[2021-04-01] MEDS: MORPHINE 4 MG SYG IV PRN (12:09)
[2021-04-01 16:00] VITALS: BP 143/60
[2021-04-01 20:00] VITALS: BP 173/81
[2021-04-02] VITALS: BP 177/71
[2021-04-02 04:00] VITALS: BP 159/63
[2021-04-02] MEDS: AURYXIA 210 MG PO SCH ×3 (08:00→16:58)
[2021-04-02 09:17] VITALS: BP 140/71
[2021-04-02] MEDS: FAMOTIDINE 20MG VIAL IV SCH (09:55)
[2021-04-02] MEDS: Vitamin B Complex/Vit C/Folic Acid PO SCH (09:55)
[2021-04-02] MEDS: CARVEDILOL 12.5 MG TABLET PO SCH ×2 (09:56→19:43)
[2021-04-02] MEDS: NIFEDIPINE 10 MG CAP PO SCH ×3 (09:57→19:42)
[2021-04-02] MEDS: ZOSYN 3.375GM+NS 50ML 50 ML IV SCH ×2 (09:58→20:33)
[2021-04-02] MEDS: PREGABALIN 75 MG CAPSULE PO SCH ×2 (10:01→19:43)
[2021-04-02 11:43] VITALS: BP 157/56
[2021-04-02 16:52] VITALS: BP 135/62
[2021-04-02] MEDS: MORPHINE 4 MG SYG IV PRN (19:44)
[2021-04-02 20:00] VITALS: BP 132/66
[2021-04-03] VITALS (40 sets, daily range): BP systolic 121–177; BP diastolic 52–93
[2021-04-03] MEDS: MORPHINE 2 MG SYG IVP PRN ×2 (05:30→22:52)
[2021-04-03 07:53] LABS: CREATININE 14.5 mg/dL (0.5-1.5); POTASSIUM 6.4 mmol/L (3.5-5.1)
[2021-04-03] MEDS ORDERED: ROPIVACAINE 0.5% 5MG/ML 30ML IJ ONE (07:58)
[2021-04-03] MEDS: AURYXIA 210 MG PO SCH ×3 (08:00→17:00)
[2021-04-03] MEDS: FAMOTIDINE 20MG VIAL IV SCH (08:26)
[2021-04-03] MEDS: Vitamin B Complex/Vit C/Folic Acid PO SCH (08:27)
[2021-04-03] MEDS: CARVEDILOL 12.5 MG TABLET PO SCH ×2 (08:27→22:53)
[2021-04-03] MEDS: PREGABALIN 75 MG CAPSULE PO SCH ×2 (08:27→22:52)
[2021-04-03] MEDS: NIFEDIPINE 10 MG CAP PO SCH ×3 (08:27→22:53)
[2021-04-03] MEDS ORDERED: PROPOFOL 10 MG/ML 20ML VIAL IV ONE ×3 (08:29→09:43)
[2021-04-03] MEDS: ZOSYN 3.375GM+NS 50ML 50 ML IV SCH ×2 (08:34→22:55)
[2021-04-03] MEDS ORDERED: FENTANYL CITRATE PF 50 MCG/1 ML 2ML VIAL ONE (09:33)
[2021-04-03] MEDS: 0.9%NACL 1000ML 1,000 ML IV PRN (16:21)
[2021-04-04] VITALS (8 sets, daily range): BP systolic 138–200; BP diastolic 69–89
[2021-04-04] MEDS ORDERED: LORAZEPAM 2 MG/ML 1 ML VIAL ONE (00:50)
[2021-04-04] MEDS ORDERED: LORAZEPAM 2 MG/ML 1 ML VIAL IVP ONE (01:30)
[2021-04-04] MEDS: HYDRALAZINE 20MG/ML VIAL IV PRN (03:59)
[2021-04-04 04:33] LABS: HEMATOCRIT 32.6 % (42-54); MEAN CORPUSCULAR HEMOGLOBIN 31.1 pg (27.0-33.0); MEAN CORPUSCULAR VOLUME 89.1 fL (79-99); RED BLOOD CELL COUNT(AUTO) 3.66 MIL/uL (4.50-6.20); RED CELL DISTRIBUTION WIDTH 13.4 % (11.0-15.5); WHITE BLOOD COUNT (AUTO) 18.9 K/uL (4.8-10.8)
[2021-04-04 04:55] LABS: PHOSPHORUS 8.6 mg/dL (2.5-4.9)
[2021-04-04 05:07] LABS: CREATININE 11.3 mg/dL (0.5-1.5)
[2021-04-04] MEDS: AURYXIA 210 MG PO SCH ×3 (08:00→15:49)
[2021-04-04] MEDS ORDERED: KAYEXALATE 15GM/60ML ONE (08:54)
[2021-04-04 09:36] LABS: POTASSIUM 5.9 mmol/L (3.5-5.1)
[2021-04-04 09:45] LABS: CREATININE 12.2 mg/dL (0.5-1.5)
[2021-04-04] MEDS ORDERED: KAYEXALATE 15GM/60ML PO ONE (09:55)
[2021-04-04] MEDS: FAMOTIDINE 20MG VIAL IV SCH (10:27)
[2021-04-04] MEDS: Vitamin B Complex/Vit C/Folic Acid PO SCH (10:29)
[2021-04-04] MEDS: NIFEDIPINE 10 MG CAP PO SCH ×3 (10:29→20:32)
[2021-04-04] MEDS: CARVEDILOL 12.5 MG TABLET PO SCH ×2 (10:29→20:32)
[2021-04-04] MEDS: PREGABALIN 75 MG CAPSULE PO SCH ×2 (10:29→20:32)
[2021-04-04] MEDS: ZOSYN 3.375GM+NS 50ML 50 ML IV SCH ×2 (10:35→20:32)
[2021-04-04 12:15] LABS: POTASSIUM 5.7 mmol/L (3.5-5.1)
[2021-04-04 12:28] LABS: CREATININE 11.9 mg/dL (0.5-1.5)
[2021-04-04] MEDS ORDERED: VANCOMYCIN 1.5GM/NS 250ML IV SCH ×2 (21:00)
[2021-04-05] VITALS (21 sets, daily range): BP systolic 108–193; BP diastolic 62–90
[2021-04-05 04:29] LABS: BASOPHILS % (AUTO) 0.6 % (0.0-5.0); EOSINOPHILS % (AUTO) 0.6 % (0.0-8.0); HEMATOCRIT 32.6 % (42-54); LYMPHOCYTES % (AUTO) 12.4 % (21.0-51.0); MEAN CORPUSCULAR HEMOGLOBIN 30.9 pg (27.0-33.0); MEAN CORPUSCULAR HGB CONC 34.4 g/dL (32.0-36.0); MEAN CORPUSCULAR VOLUME 89.8 fL (79-99); MONOCYTES % (AUTO) 10.6 % (3.0-13.0); NEUTROPHILS % (AUTO) 74.9 % (40.0-77.0); PLATELET COUNT (AUTO) 237 K/uL (130-400); RED BLOOD CELL COUNT(AUTO) 3.63 MIL/uL (4.50-6.20); RED CELL DISTRIBUTION WIDTH 13.4 % (11.0-15.5); WHITE BLOOD COUNT (AUTO) 14.5 K/uL (4.8-10.8)
[2021-04-05 05:10] LABS: PHOSPHORUS 10.7 mg/dL (2.5-4.9); POTASSIUM 5.5 mmol/L (3.5-5.1)
[2021-04-05 05:29] LABS: CREATININE 14.2 mg/dL (0.5-1.5)
[2021-04-05] MEDS: AURYXIA 210 MG PO SCH ×3 (08:00→16:01)
[2021-04-05] MEDS: FAMOTIDINE 20MG VIAL IV SCH (09:11)
[2021-04-05] MEDS: CARVEDILOL 12.5 MG TABLET PO SCH ×2 (09:11→20:57)
[2021-04-05] MEDS: PREGABALIN 75 MG CAPSULE PO SCH ×2 (09:11→20:56)
[2021-04-05] MEDS: Vitamin B Complex/Vit C/Folic Acid PO SCH (09:12)
[2021-04-05] MEDS: NIFEDIPINE 10 MG CAP PO SCH ×3 (09:12→20:56)
[2021-04-05] MEDS: ZOSYN 3.375GM+NS 50ML 50 ML IV SCH ×2 (09:13→20:57)
[2021-04-05] MEDS: TICAGRELOR 90 MG TABLET PO SCH (20:57)
[2021-04-06 03:31] VITALS: BP 139/71
[2021-04-06 04:45] LABS: HEMATOCRIT 32.9 % (42-54); MEAN CORPUSCULAR HEMOGLOBIN 31.1 pg (27.0-33.0); MEAN CORPUSCULAR HGB CONC 34.7 g/dL (32.0-36.0); MEAN CORPUSCULAR VOLUME 89.9 fL (79-99); PLATELET COUNT (AUTO) 247 K/uL (130-400); RED BLOOD CELL COUNT(AUTO) 3.66 MIL/uL (4.50-6.20); RED CELL DISTRIBUTION WIDTH 13.6 % (11.0-15.5); WHITE BLOOD COUNT (AUTO) 13.6 K/uL (4.8-10.8)
[2021-04-06 05:09] LABS: BAND NEUTROPHILS % (MANUAL) 1 % (0-2); BASOPHILS % (MANUAL) 1 % (0-2); LYMPHOCYTES % (MANUAL) 9 % (22-44); MAN.DIFF COMMENT-IMPRESSION MANUAL DIFFERENTIAL; MONOCYTES % (MANUAL) 7 % (2-9); REACTIVE LYMPHOCYTES 3 % (0-0); SEGMENTED NEUTROPHILS % 79 % (40-70)
[2021-04-06 05:22] LABS: ALBUMIN 2.7 g/dL (3.5-5.0); BILIRUBIN,TOTAL 0.8 mg/dL (0.2-1.0); TOTAL PROTEIN, SERUM 8.6 g/dL (6.0-8.3)
[2021-04-06 05:27] LABS: CREATININE 10.7 mg/dL (0.5-1.5)
[2021-04-06 08:00] VITALS: BP 157/70
[2021-04-06] MEDS: AURYXIA 210 MG PO SCH ×3 (08:00→16:32)
[2021-04-06] MEDS: FAMOTIDINE 20MG VIAL IV SCH (08:57)
[2021-04-06] MEDS: TICAGRELOR 90 MG TABLET PO SCH ×2 (08:58→21:27)
[2021-04-06] MEDS: CARVEDILOL 12.5 MG TABLET PO SCH ×2 (08:58→21:27)
[2021-04-06] MEDS: NIFEDIPINE 10 MG CAP PO SCH ×3 (08:59→21:27)
[2021-04-06] MEDS: Vitamin B Complex/Vit C/Folic Acid PO SCH (08:59)
[2021-04-06] MEDS: ZOSYN 3.375GM+NS 50ML 50 ML IV SCH ×2 (08:59→21:28)
[2021-04-06] MEDS: PREGABALIN 75 MG CAPSULE PO SCH ×2 (08:59→21:27)
[2021-04-06] MEDS: TRAMADOL HCL 50 MG TABLET PO PRN (11:55)
[2021-04-06 16:00] VITALS: BP 140/62
[2021-04-06 21:01] VITALS: BP 129/63
[2021-04-06] MEDS: CILOSTAZOL 100 MG TAB PO SCH (21:28)
[2021-04-07] VITALS (22 sets, daily range): BP systolic 93–147; BP diastolic 48–76
[2021-04-07 04:46] LABS: HEMATOCRIT 32.2 % (42-54); MEAN CORPUSCULAR HGB CONC 33.9 g/dL (32.0-36.0); MEAN CORPUSCULAR VOLUME 91.5 fL (79-99); PLATELET COUNT (AUTO) 257 K/uL (130-400); RED BLOOD CELL COUNT(AUTO) 3.52 MIL/uL (4.50-6.20); RED CELL DISTRIBUTION WIDTH 13.5 % (11.0-15.5); WHITE BLOOD COUNT (AUTO) 11.6 K/uL (4.8-10.8)
[2021-04-07 05:11] LABS: BAND NEUTROPHILS % (MANUAL) 2 % (0-2); BASOPHILS % (MANUAL) 2 % (0-2); EOSINOPHILS % (MANUAL) 4 % (1-6); LYMPHOCYTES % (MANUAL) 15 % (22-44); MAN.DIFF COMMENT-IMPRESSION MANUAL DIFFERENTIAL; MONOCYTES % (MANUAL) 9 % (2-9); PLATELET MORPHOLOGY COMMENT ADEQUATE; REACTIVE LYMPHOCYTES 1 % (0-0); SEGMENTED NEUTROPHILS % 67 % (40-70)
[2021-04-07 05:12] LABS: ALBUMIN 2.6 g/dL (3.5-5.0); BILIRUBIN,TOTAL 0.7 mg/dL (0.2-1.0); POTASSIUM 5.3 mmol/L (3.5-5.1); TOTAL PROTEIN, SERUM 8.2 g/dL (6.0-8.3)
[2021-04-07 05:15] LABS: CREATININE 13.2 mg/dL (0.5-1.5)
[2021-04-07] MEDS: AURYXIA 210 MG PO SCH ×3 (08:00→17:00)
[2021-04-07] MEDS: FAMOTIDINE 20MG VIAL IV SCH (08:31)
[2021-04-07] MEDS: CARVEDILOL 12.5 MG TABLET PO SCH ×2 (08:32→20:20)
[2021-04-07] MEDS: Vitamin B Complex/Vit C/Folic Acid PO SCH (08:32)
[2021-04-07] MEDS: TICAGRELOR 90 MG TABLET PO SCH ×2 (08:32→20:22)
[2021-04-07] MEDS: PREGABALIN 75 MG CAPSULE PO SCH ×2 (08:32→20:19)
[2021-04-07] MEDS: ZOSYN 3.375GM+NS 50ML 50 ML IV SCH ×2 (08:32→20:22)
[2021-04-07] MEDS: CILOSTAZOL 100 MG TAB PO SCH ×2 (08:32→20:20)
[2021-04-07] MEDS: NIFEDIPINE 10 MG CAP PO SCH ×3 (08:33→20:19)
[2021-04-07] MEDS ORDERED: Vitamin B Complex/Vit C/Folic Acid PO SCH (09:00)
[2021-04-07] MEDS: TRAMADOL HCL 50 MG TABLET PO PRN (20:27)
== END 2021-04-07 21:30 | DRG 239 ==
LOC: EDH 17:30 → EDHIP 21:21 → 3CH 23:47
PROVIDERS: ADMIT Internal Medicine; ATTEND Internal Medicine
PROC: 5A1D70Z Performance of Urinary Filtration, Intermittent, Less than 6 Hours Per Day (ICD-10-PCS; 2021-03-29)
PROC: 5A1D70Z Performance of Urinary Filtration, Intermittent, Less than 6 Hours Per Day (ICD-10-PCS; 2021-03-31)
PROC: 5A1D70Z Performance of Urinary Filtration, Intermittent, Less than 6 Hours Per Day (ICD-10-PCS; 2021-04-03)
PROC: 0Y6C0Z3 Detachment at Right Upper Leg, Low, Open Approach (ICD-10-PCS; principal; 2021-04-03 08:00)
PROC: 5A1D70Z Performance of Urinary Filtration, Intermittent, Less than 6 Hours Per Day (ICD-10-PCS; 2021-04-05)
PROC: 5A1D70Z Performance of Urinary Filtration, Intermittent, Less than 6 Hours Per Day (ICD-10-PCS; 2021-04-07)
DX: E11.52 Type 2 diabetes mellitus with diabetic peripheral angiopathy with gangrene (principal); N18.6 End stage renal disease; G93.41 Metabolic encephalopathy; L03.90 Cellulitis, unspecified; I13.2 Hypertensive heart and chronic kidney disease with heart failure and with stage 5 chronic kidney disease, or end stage renal disease; I50.32 Chronic diastolic (congestive) heart failure; M86.8X7 Other osteomyelitis, ankle and foot; M17.11 Unilateral primary osteoarthritis, right knee; E87.5 Hyperkalemia; Z20.822 Contact with and (suspected) exposure to COVID-19; E78.00 Pure hypercholesterolemia, unspecified; M77.31 Calcaneal spur, right foot; I25.10 Atherosclerotic heart disease of native coronary artery without angina pectoris; E78.5 Hyperlipidemia, unspecified; F17.210 Nicotine dependence, cigarettes, uncomplicated; E11.22 Type 2 diabetes mellitus with diabetic chronic kidney disease; E11.69 Type 2 diabetes mellitus with other specified complication; D64.9 Anemia, unspecified; D72.829 Elevated white blood cell count, unspecified; E11.649 Type 2 diabetes mellitus with hypoglycemia without coma; Z99.2 Dependence on renal dialysis; Z79.4 Long term (current) use of insulin; Z88.6 Allergy status to analgesic agent; Z89.519 Acquired absence of unspecified leg below knee; Z95.5 Presence of coronary angioplasty implant and graft; Z91.19 Patient's noncompliance with other medical treatment and regimen; Z83.3 Family history of diabetes mellitus; Z82.49 Family history of ischemic heart disease and other diseases of the circulatory system
CPT/HCPCS: 36415; 70450; 71045; 73630; 80048; 80053; 80202; 81001; 82550; 82948; 83036; 83605; 83735; 83874; 84100; 84132; 84443; 84484; 85025; 85027; 85610; 85651; 85730; 86140; 86704; 86706; 86850; 86900; 86901; 87040; 87088; 87340; 87635; 88307; 88311; 90935; 93005; 93925; 94640; 94664; 97039; 99291; C9803; G0378; J0360; J2060; J2270; J2405; J2543; J2704; J2795; J3010; J3370; J3490; J7030; J7070; J7120

== ENCOUNTER 2022-01-18 06:19 | Day surgery (SDC) | payer MEDICARE ==
[2022-01-16 12:57] LABS: HEMATOCRIT 46.9 % (42-54); MEAN CORPUSCULAR HEMOGLOBIN 29.1 pg (27.0-33.0); MEAN CORPUSCULAR HGB CONC 32.4 g/dL (32.0-36.0); MEAN CORPUSCULAR VOLUME 89.8 fL (79-99); RED BLOOD CELL COUNT(AUTO) 5.22 MIL/uL (4.50-6.20); RED CELL DISTRIBUTION WIDTH 16.2 % (11.0-15.5); WHITE BLOOD COUNT (AUTO) 5.6 K/uL (4.8-10.8)
[2022-01-16 13:09] LABS: CREATININE 5.8 mg/dL (0.5-1.5); POTASSIUM 4.8 mmol/L (3.5-5.1)
[2022-01-16 13:10] LABS: INR 1.28 (0.85-1.15); PROTHROMBIN TIME 13.8 SEC (9.6-11.6)
[2022-01-16 13:12] LABS: PARTIAL THROMBOPLASTIN TIME 31.3 SEC (26.3-35.5)
[2022-01-17 12:36] VITALS: BP 181/76
[2022-01-18] VITALS (18 sets, daily range): BP systolic 138–160; BP diastolic 67–84
[~2022-01-18 06:19] MED LIST changes: -AMLO-258 PO; +AMLO10TA4 PO; -AURYXIA PO; +CEFAZOLIN SODIUM 1 GM VIAL IVP SCH; -CHOL100046 PO; -CLOP75TA32 PO; -CYAN50009 PO; -FISH1CAP27 PO; -FOLI1TAB85 PO; +GLIP5TAB11 PO; -ROPI0.5T7 PO; +SEVE800T27 PO; -TICA90TA PO; -VITA-164 PO; -VITA100D6 PO
[2022-01-18] MEDS ORDERED: 0.9% NACL 500ML IV.SOLN 500 ML IV ONE (06:57)
[2022-01-18] MEDS ORDERED: DEXTROSE 50%-WATER 50 ML DISP.SYRIN IV ONE ×2 (06:58→11:08)
[2022-01-18] MEDS ORDERED: LIDOCAINE HCL MPF 1% 5ML VIAL ONE (07:15)
[2022-01-18] MEDS ORDERED: ROCURONIUM BROMIDE 10MG/1ML 5ML VL ONE (07:15)
[2022-01-18] MEDS ORDERED: PROPOFOL 10 MG/ML 20ML VIAL IV ONE (07:16)
[2022-01-18] MEDS ORDERED: FENTANYL CITRATE PF 50 MCG/1 ML 2ML VIAL ONE (07:16)
[2022-01-18] MEDS ORDERED: ONDANSETRON 4MG INJ ONE (07:18)
[2022-01-18] MEDS ORDERED: EPHEDRINE SULFATE 50 MG/ML AMPULE ONE (07:18)
[2022-01-18] MEDS ORDERED: CEFAZOLIN SODIUM 1 GM VIAL ONE (07:19)
[2022-01-18] MEDS ORDERED: BUPIVACAINE/PF 0.5% 10ML VIAL ONE (07:20)
[2022-01-18] MEDS ORDERED: LIDOCAINE PF 100MG/5ML (2%) SYRINGE 5ML ONE (07:28)
[2022-01-18] MEDS ORDERED: GLYCOPYRROLATE 1 MG/5 ML SYRINGE ONE (09:02)
[2022-01-18] MEDS ORDERED: NEOSTIGMINE 5MG/5ML SYR IV ONE (10:01)
[2022-01-18] MEDS ORDERED: IPRATROPIUM/ALBUTEROL SULFATE 3 ML SOLUTION IH ONE (10:51)
[2022-01-29] MEDS ORDERED: TRAM50TA4 PO (16:02)
== END 2022-01-18 12:30 | disposition home or self-care (01) ==
LOC: DAH 06:19
PROVIDERS: ATTEND Thoracic Surgery (Cardiothoracic Vascular Surgery)
DX: I72.8 Aneurysm of other specified arteries (principal); E11.22 Type 2 diabetes mellitus with diabetic chronic kidney disease; I12.0 Hypertensive chronic kidney disease with stage 5 chronic kidney disease or end stage renal disease; N18.6 End stage renal disease; E11.51 Type 2 diabetes mellitus with diabetic peripheral angiopathy without gangrene; J44.9 Chronic obstructive pulmonary disease, unspecified; F17.200 Nicotine dependence, unspecified, uncomplicated; K21.9 Gastro-esophageal reflux disease without esophagitis; I25.10 Atherosclerotic heart disease of native coronary artery without angina pectoris; Z99.2 Dependence on renal dialysis; Z98.890 Other specified postprocedural states
CPT/HCPCS: 80048; 85027; 85610; 85730; 86850; 86900; 86901; 87426; 36415 ×2; 71045; 93005; 36832; 84132; 82948 ×3; 94640; A4663; J7030; A4649 ×3; J7040; J3010; J0690 ×2; J3490 ×4; J2710; J7070 ×2; J2001; J2704; J2405; J1644; A6219; C1713 ×2; A4215; A4223; A4222; A4221

== ENCOUNTER 2022-02-05 18:43 | Emergency (ER) | payer MEDICARE ==
[~2022-02-05 18:43] MED LIST changes: -CEFAZOLIN SODIUM 1 GM VIAL IVP SCH; -GLIP10TA9 PO; -GLIP5TAB11 PO; +TRAM50TA4 PO
[2022-02-05 22:02] VITALS: BP 168/81
== END 2022-02-05 22:28 | disposition home or self-care (01) ==
LOC: EDH 18:43
DX: T82.838A Hemorrhage due to vascular prosthetic devices, implants and grafts, initial encounter (principal); I12.0 Hypertensive chronic kidney disease with stage 5 chronic kidney disease or end stage renal disease; E11.22 Type 2 diabetes mellitus with diabetic chronic kidney disease; E78.00 Pure hypercholesterolemia, unspecified; N18.6 End stage renal disease; F17.200 Nicotine dependence, unspecified, uncomplicated; Z79.84 Long term (current) use of oral hypoglycemic drugs; Z88.6 Allergy status to analgesic agent; Z89.512 Acquired absence of left leg below knee; Z89.611 Acquired absence of right leg above knee; Z99.2 Dependence on renal dialysis; Y84.8 Other medical procedures as the cause of abnormal reaction of the patient, or of later complication, without mention of misadventure at the time of the procedure; Y92.89 Other specified places as the place of occurrence of the external cause

== ENCOUNTER → 2024-03-27 | Outpatient (CLI) | payer MEDICARE ==
[2024-03-27 10:25] LABS: BASOPHILS # (AUTO) 0.05 K/uL (0.00-0.20); BASOPHILS % (AUTO) 0.9 % (0.0-5.0); EOSINOPHILS % (AUTO) 3.5 % (0.0-8.0); IMMATURE GRANULOCYTE ABSOLUTE 0.03 K/uL (0-1); MEAN CORPUSCULAR HEMOGLOBIN 31.7 pg (27.0-33.0); MEAN CORPUSCULAR HGB CONC 33.1 g/dL (32.0-36.0); MEAN CORPUSCULAR VOLUME 95.8 fL (79-99); MONOCYTES # (AUTO) 0.5 K/uL (0.1-1.0); MONOCYTES % (AUTO) 8.5 % (3.0-13.0); NEUTROPHILS % (AUTO) 69.6 % (40.0-77.0); PLATELET COUNT (AUTO) 129 K/uL (130-400); RED BLOOD CELL COUNT(AUTO) 3.34 MIL/uL (4.50-6.20); RED CELL DISTRIBUTION WIDTH 13.8 % (11.0-15.5); WHITE BLOOD COUNT (AUTO) 5.8 K/uL (4.8-10.8)
[2024-03-27 10:43] LABS: ALBUMIN 2.6 g/dL (3.5-5.0); BILIRUBIN,TOTAL 0.7 mg/dL (0.2-1.0); CREATININE 4.8 mg/dL (0.5-1.3); POTASSIUM 4.5 mmol/L (3.5-5.1); TOTAL PROTEIN, SERUM 7.7 g/dL (6.0-8.3)
[2024-03-27 10:47] LABS: INR 1.44 (0.85-1.15); PROTHROMBIN TIME 15.1 SEC (9.6-11.6)
[2024-03-27 10:48] LABS: PARTIAL THROMBOPLASTIN TIME 30.9 SEC (26.3-35.5)
== END | disposition home or self-care (01) ==
LOC: LAB 09:14
PROVIDERS: ATTEND Internal Medicine Gastroenterology
DX: R18.8 Other ascites (principal); Z86.2 Personal history of diseases of the blood and blood-forming organs and certain disorders involving the immune mechanism
CPT/HCPCS: 36415; 80053; 85025; 85610; 85730

== ENCOUNTER → 2024-08-28 | Outpatient (CLI) | payer MEDICARE ==
[~2024-08-28] MED LIST changes: +ALBUMIN HUMAN 25% 200 ML IV ONE; +AMLO-915 PO; -AMLO10TA4 PO
[2024-08-28 10:48] LABS: ALBUMIN 2.4 g/dL (3.5-5.0); BILIRUBIN,TOTAL 0.7 mg/dL (0.2-1.0); CREATININE 4.9 mg/dL (0.5-1.3); POTASSIUM 4.1 mmol/L (3.5-5.1); TOTAL PROTEIN, SERUM 7.7 g/dL (6.0-8.3)
--- NOTE | 2024-08-28 11:00 | NUR ---
U/S GD PARACENTESIS PROCEDURE PERFORMED BY DR Xavier MADSEN. PUNCTURE SITE RLQ AND PATIENT TOLERATED PROCEDURE WELL. TOTAL REMOVED 9 LITERS OF CLOUDY YELLOW FLUID. ALBUMIN 25% 50 GRAMS IV GIVEN DURING PROCEDURE. SPECIMEN SENT TO LAB. END OF PROCEDURE AT 1030 CATHETER REMOVED AND DRESSING APPLIED. NO BLEEDING NOTED. DISCHARGE INSTRUCTIONS GIVEN TO PATIENT AND VERBALIZED UNDERSTANDING. DISCHARGED VIA W/C AT 1100. AAO X3 WITH NO C/O PAIN.
[2024-08-28 11:17] LABS: BASOPHILS # (AUTO) 0.07 K/uL (0.00-0.20); BASOPHILS % (AUTO) 1.1 % (0.0-5.0); EOSINOPHILS # (AUTO) 0.27 K/uL (0.00-0.70); EOSINOPHILS % (AUTO) 4.1 % (0.0-8.0); HEMATOCRIT 34.9 % (42-54); IMMATURE GRANULOCYTE ABSOLUTE 0.02 K/uL (0-1); LYMPHOCYTES # (AUTO) 1.4 K/uL (1.0-4.8); LYMPHOCYTES % (AUTO) 20.9 % (21.0-51.0); MEAN CORPUSCULAR HEMOGLOBIN 31.4 pg (27.0-33.0); MEAN CORPUSCULAR HGB CONC 33.8 g/dL (32.0-36.0); MEAN CORPUSCULAR VOLUME 92.8 fL (79-99); MONOCYTES # (AUTO) 0.6 K/uL (0.1-1.0); MONOCYTES % (AUTO) 9.7 % (3.0-13.0); NEUTROPHILS # (AUTO) 4.2 K/uL (1.8-7.7); NEUTROPHILS % (AUTO) 63.9 % (40.0-77.0); PLATELET COUNT (AUTO) 192 K/uL (130-400); RED BLOOD CELL COUNT(AUTO) 3.76 MIL/uL (4.50-6.20); RED CELL DISTRIBUTION WIDTH 13.2 % (11.0-15.5); WHITE BLOOD COUNT (AUTO) 6.5 K/uL (4.8-10.8)
[2024-08-28 11:24] LABS: INR 1.24 (0.85-1.15); PROTHROMBIN TIME 12.9 SEC (9.6-11.6)
[2024-08-28 11:25] LABS: PARTIAL THROMBOPLASTIN TIME 29.3 SEC (26.3-35.5)
[2024-08-28 13:01] LABS: BODY FLUID RBC 37 /cu. mm.; BODY FLUID WBC 352 /cu. mm.
[2024-08-28 13:05] LABS: ALBUMIN,BODY FLUID 1.6 g/dL; TOTAL PROTEIN,BODY FLUID 4.4 g/dL
[2024-08-28] MEDS: ALBUMIN HUMAN 25% 200 ML IV ONE (13:10)
[2024-08-28 13:15] LABS: APPEARANCE BODY FLUID CLEAR (CLEAR); COLOR,BODY FLUID YELLOW (LT YELLOW); SPECIMENTYPE,BODY FLUID ASCITES; TOTAL VOLUME,BODY FLUID 9000 mL
[2024-08-28 13:26] LABS: BF LYMPHOCYTE 13 %; BF MESOTHELIAL 77 %; BF MONOCYTE 9 %; BF TOTAL CELLS COUNTED 100
--- NOTE | 2024-08-28 16:59 | HMCIMG ---
US ABDOMINAL PARACENTESIS IR HISTORY: Ascites COMPARISON: None TECHNIQUE: Informed consent was obtained. Risks and benefits were explained to the patient. A timeout was performed. Patient was prepped and draped in a sterile fashion. Local anesthetics was given as required. Under ultrasound guidance, ascites fluid was localized. Paracentesis was performed. FINDINGS: 9 L of yellowish fluid was aspirated. Less than 2 cc blood loss is noted. Patient tolerated procedure without complication. Patient left the department in good condition. IMPRESSION: 1. Uncomplicated ultrasound-guided paracentesis.
== END ==
LOC: RAH 09:00
PROVIDERS: ATTEND Internal Medicine Gastroenterology
DX: R18.8 Other ascites (principal); M19.90 Unspecified osteoarthritis, unspecified site; I12.0 Hypertensive chronic kidney disease with stage 5 chronic kidney disease or end stage renal disease; N18.6 End stage renal disease; Z99.2 Dependence on renal dialysis; Z86.0100 Personal history of colon polyps, unspecified; Z88.6 Allergy status to analgesic agent; Z79.899 Other long term (current) drug therapy; Z98.890 Other specified postprocedural states
CPT/HCPCS: 49083; 84157; 80053; 85025; 89051; 85610; 85730; 87071; 87205; 82042; 36415; P9046; C1729